=== PATIENT | female | born 1985 | race Caucasian/White ===

== ENCOUNTER 2023-02-02 11:15 | Outpatient (CLI) | payer OTHER, SELFPAY | END 2023-02-02 11:16 | disposition home or self-care (01) | PROVIDERS: PCP Physician Assistant Medical; Visit Provider Family Medicine | DX: Z00.00 Encounter for general adult medical examination without abnormal findings (principal); E66.3 Overweight; R03.0 Elevated blood-pressure reading, without diagnosis of hypertension; Z13.6 Encounter for screening for cardiovascular disorders; Z83.3 Family history of diabetes mellitus | CPT/HCPCS: 80053; 80061 ==

== ENCOUNTER 2023-02-09 18:24 | Outpatient (CLI) | payer OTHER, SELFPAY | END 2023-02-09 18:25 | disposition home or self-care (01) | LOC: RAD 18:25 | PROVIDERS: PCP Physician Assistant Medical; Visit Provider Family Medicine | DX: G90.A Postural orthostatic tachycardia syndrome [POTS] (principal); R00.0 Tachycardia, unspecified | CPT/HCPCS: 93225; 93226 ==

== ENCOUNTER 2023-06-27 14:19 | Emergency (ER) | payer OTHER, SELFPAY ==
[2023-06-27 14:23] VITALS: BP 138/91; PULSE 110; RESP 18; TEMP 36.2; O2SAT 96; BMI 36.5
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
== END 2023-06-27 14:43 | disposition home or self-care (01) ==
PROVIDERS: Emergency Provider Student in an Organized Health Care Education/Training Program; PCP Physician Assistant Medical
DX: M25.511 Pain in right shoulder (principal); Y04.2XXA Assault by strike against or bumped into by another person, initial encounter; Y99.0 Civilian activity done for income or pay
CPT/HCPCS: 99282; 99283

== ENCOUNTER 2024-09-06 13:06 | Outpatient (CLI) | payer OTHER, SELFPAY ==
--- NOTE | 2024-09-06 15:26 | W.PM.LAC.MC ---
Consult Note - Mom Date of Visit Date of visit: 09/06/24 Reason for consultation: Assistance Needed and Low Milk Supply Visit Code: Visit Patient's Information Phone number: [phone] : 1 Para: 1 Allergies codeine Allergy (Severe, Verified 07/28/24 11:46) Hallucinating hydrocodone Allergy (Severe, Verified 07/28/24 11:46) Difficulty Breathing penicillin V Allergy (Mild, Verified 07/28/24 11:46) Hives Mother's medical history: Anxiety and Depression Work Plans: return to work at 12 weeks, works straight restaurant shift leader Delivery Information Delivery type: Vaginal Gestational Age: 36 weeks Gestational Weight For Age: LGA Weight: 3.84 kg Discharge Weight: 3.519 kg Percentage weight loss: 8.4 Baby's Information Baby's Age at Visit: 9 days Baby's Provider or Clinic: [facility] Jaundice: No Past Experience Past Experience: No Current Frequency of Day Feedings: every 3 hrs day and night, needs to be woken for feedings Both Breasts: No Suck: minimal Pumping Pumping: Yes (about every 6 hours) Quantity Pumped: 10-15 ml total Supplementing EBM Supplement: Yes Formula Supplement: Yes Baby Elimination Number of Wet Diapers a Day: ea feeding Number of BM a Day: 1-2/day Breast/Nipple Condition Breast Information: Breasts are symmetrical with rounded lower quadrants, intramammary distance is less than 1.5 inches. No erythema. Nipples are supple, everted prior to feeding. Breast Shape: Round, Pendulous and Pliable Engorgement: No Maternal Nipple Condition - Left: Short Maternal Nipple Condition - Right: Short Sore Nipples: No Baby Assessment Skin: Normal Tongue/frenulum: Normal/elastic Palate: Average Lips: Relaxed and Symmetrical Jaw Alignment: Symmetrical Mucosa: [place], moist Onsite Observation Pre-Feed weight: 3.572 kg (up 122 gms in 4 days )average 30.5 gms/day)) Position: Football Attachment/latch-on achieved: Not achieved Assessments/Interventions Assessments/Interventions: observation Babe sleepy, unwilling to open mouth wide enough to obtain a deep latch Mom had tried a nipple shield in the hospital but didn't know if it helped or not; tried here in the office with mild success. Discussed sometimes babies born prematurely do well with a nipple shield as it helps them with their target. 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 Worked here in the office on pace bottle feeding in an upright position vs sidelying; chato did well overall, took about 20 minutes to get 60ml bottle finished, some dribbling noted so showed chin support and gentle pressure of bottle to mouth to help keep seal Education provided: Early feeding cues to maximize timing of latching, Asymmetric latch technique for wide/deep latch to increase milk, Transfer for baby and increase comfort for mom, Supply/demand nature of milk supply, Use of nipple shield and Pumping for milk management Handouts Provided: How to pump more milk by Spectra Feeding Plan: Offer 2-3 times/day, likely no more than 5 min side IF hearing active swallowing Given prematurity and mom with minimal milk supply, mainstay of calories for baby will be bottle of EBM and formula Reviewed paced bottle feeding in office and gave tips to help with keeping baby awake for feedings Discussed bottle options; currently using Dr. Barrow, ok to continue if seems to be working. Ok to trying Spectra wide base bottle nipple at home and assess if this works better (decrease length of time for feedings and less dribbling). Discussed pumping routine for mom: pump 20 minutes every 3 hours; track progress of milk pumped in 24 hours more than single pump session. Reviewed pump settings and hand on pumping Discussed galactogogues as option:no hard/fast research, not FDA approved for purpose, information is more anecdotal, no known harm in trying, mom would like to proceed. Options discussed, More Milk Special Blend recommended based on premature and minimal breast changes during . Follow-Up Suggested follow up: Appointment as needed (as mom's milk supply increases and babe gets closer to due date, and prn) Recommend baby be seen by provider for:: weight check in 3-4 days Time Spent Time spent with patient (min): 90 Meds Home Medications and Allergies Home Medications ?Medication ?Instructions ?Recorded ?Confirmed ?Type loratadine 10 mg tablet 10 mg PO QDAY PRN 02/02/23 07/28/24 History ascorbic acid (vitamin C) 500 mg mg PO 07/28/24 07/28/24 History capsule aspirin 81 mg tablet,delayed 81 mg PO QDAY 07/28/24 07/28/24 History release (Adult Aspirin Regimen) cetirizine 10 mg capsule (Zyrtec) 10 mg PO QDAY PRN 07/28/24 07/28/24 History ferrous gluconate 324 mg (37.5 mg 648 mg PO BID 07/28/24 07/28/24 History iron) tablet labetalol 100 mg tablet 100 mg PO BID 07/28/24 07/28/24 History metoclopramide HCl 5 mg tablet 5 mg PO QDAY 07/28/24 07/28/24 History (Reglan) nystatin-triamcinolone 100,000 1 applic topical BID 07/28/24 07/28/24 History unit/gram-0.1 % topical ointment vitamin#30 30 mg iron-10 cap PO 07/28/24 07/28/24 History mg iron-folic acid 1 mg-omg3 capsule Allergies Allergy/AdvReac Type Severity Reaction Status Date / Time codeine Allergy Severe Hallucinati Verified 07/28/24 11:46 ng hydrocodone Allergy Severe Difficulty Verified 07/28/24 11:46 Breathing penicillin V Allergy Mild Hives Verified 07/28/24 11:46
== END 2024-09-06 13:07 | disposition home or self-care (01) ==
LOC: OB LAC 13:06
PROVIDERS: PCP Family Medicine; Visit Provider Family Medicine
DX: Z39.1 Encounter for care and examination of lactating mother (principal)
CPT/HCPCS: G0463